=== PATIENT | female | born 1990 | race Caucasian/White ===

== ENCOUNTER 2017-04-12 11:00 | Emergency (ER) | payer MEDICAID, OTHER ==
[~2017-04-12] VITALS: Ht 162.6 cm; Wt 60.0 kg
[~2017-04-12 11:00] MED LIST: METH40TA3 PO
[2017-04-12] MEDS ORDERED: ONDANSETRON ODT 4 MG PO ONE (13:00)
[2017-04-12] MEDS ORDERED: HYDROmorphone 1 MG/ML, 1ML IM ONE (13:00)
[2017-04-12] MEDS ORDERED: ONDANSETRON ODT 4 MG ONE (13:12)
[2017-04-12] MEDS ORDERED: HYDROmorphone 1 MG/ML, 1ML ONE (13:13)
[2017-04-12 15:25] VITALS: BP 107/57
== END 2017-04-12 15:28 | disposition home or self-care (01) ==
LOC: ED 12:33
DX: G89.29 Other chronic pain (principal); M25.561 Pain in right knee
CPT/HCPCS: 29505; 36415; 73564; 83605; 96372; 99285; J1170; Q0162